=== PATIENT | female | born 1985 | race American Indian/Alaskan Native ===

== ENCOUNTER 2022-05-30 21:36 | Emergency (ER) | payer MEDICAID ==
[2022-05-31 00:03] LABS: Basophils # (Auto) 0.1 K/mm3 (0.0-0.1); Basophils % (Auto) 0.5 % (0.0-1.8); Eosinophils # (Auto) 0.2 K/mm3 (0.0-0.4); Eosinophils % (Auto) 1.3 % (0.0-4.3); Hemoglobin 11.8 gm/dl (10.1-14.3); Lymphocytes # (Auto) 3.5 K/mm3 (1.2-5.4); Lymphocytes % (Auto) 31.3 % (13.4-35.0); Mean Corpuscular HGB Conc 33 % (30-34); Mean Corpuscular Volume 85 fl (79-97); Monocytes % (Auto) 8.7 % (0.0-7.3); Platelet Count 297 K/mm3 (140-440); Red Blood Count 4.22 M/mm3 (3.65-5.03); Red Cell Distribution Width 14.9 % (13.2-15.2)
[2022-05-31 00:15] LABS: Blood Urea Nitrogen 16 mg/dL (7-17); Calcium 9.2 mg/dL (8.4-10.2); Hemolysis Index 3
[2022-05-31 00:16] LABS: BUN/Creatinine Ratio 23
[2022-05-31] MEDS ORDERED: ACETAMINOPHEN 325 MG TAB PO ONE (03:44)
[2022-05-31] MEDS ORDERED: IBUPROFEN 600 MG TAB PO ONE (03:44)
[2022-05-31] MEDS ORDERED: CLINDAMYCIN 300 MG CAP PO ONE (03:44)
--- NOTE | 2022-05-31 03:45 | Emergency Department Report ---
ED General Adult HPI - General Chief complaint: Pain General Stated complaint: Right breast pain Time Seen by Provider: 05/31/22 03:36 Source: patient Mode of arrival: Ambulatory Limitations: No Limitations - History of Present Illness Initial comments: The patient was evaluated in the emergency department for symptoms described in the history of present illness. He/she was evaluated in the context of the global COVID-19 pandemic, which necessitated consideration that the patient might be at risk for infection with the virus that causes COVID-19. Institutional protocols and algorithms that pertain to the evaluation of patients at risk for COVID-19 are in a state of rapid change based on information released by regulatory bodies including the CDC and federal and state organizations. These policies and algorithms were followed during the patient's care in the emergency department. Please note that these policies, procedures and recommendations changed on a rapid basis. During the history and physical examination, I am chaperoned by nurse Rosalba Darby The patient is a 36-year-old female who is right-hand dominant who states that she is not . She has a past medical history of breast abscess, and possible cellulitis, which she reports was drained and treated by breast surgeon at [facility]. She reports having had a mammogram which is unremarkable. She presents to the department today with complaint of right-s ided chest wall pain/breast pain, and right-sided breast redness. She denies the possibility of . She otherwise denies additional complaints. She denies travel, surgery, immobilization, DVT and pulmonary embolism risk factors. Reports no personal or family history of DVT, PE, ACS, [place]. 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 She denies oral contraceptive use. She denies shortness of breath, vomiting, and diaphoresis. She denies abdominal pain to myself. Her symptoms have been present since Monday. It is now Monday morning -: days(s) Location: right (Right breast) Consistency: constant Improves with: rest Worsens with: movement Associated Symptoms: denies other symptoms - Related Data Previous Rx's Medication Instructions Recorded Last Taken Type Acetaminophen [Non-Aspirin Extra 500 mg PO Q6HR PRN #30 tablet 05/31/22 Unknown Rx Strength] Clindamycin [Clindamycin CAP] 300 mg PO Q6H #28 cap 05/31/22 Unknown Rx Ibuprofen [Motrin] 600 mg PO Q8H PRN #30 tablet 05/31/22 Unknown Rx Allergies Allergy/AdvReac Type Severity Reaction Status Date / Time No Known Allergies Allergy Unverified 05/30/22 22:40 ED Review of Systems ROS: Stated complaint: CHEST PAIN,BREST LUMP Other details as noted in HPI Constitutional: denies: fever Respiratory: denies: cough, shortness of breath Cardiovascular: chest pain (Right-sided chest wall pain and breast) Gastrointestinal: denies: abdominal pain Skin: lesions Neurological: denies: weakness ED Past Medical Hx - Medications Home Medications: Home Medications Medication Instructions Recorded Confirmed Last Taken Type Acetaminophen [Non-Aspirin Extra 500 mg PO Q6HR PRN #30 tablet 05/31/22 Unknown Rx Strength] Clindamycin [Clindamycin CAP] 300 mg PO Q6H #28 cap 05/31/22 Unknown Rx Ibuprofen [Motrin] 600 mg PO Q8H PRN #30 tablet 05/31/22 Unknown Rx ED Physical Exam - General Limitations: No Limitations General appearance: alert, in no apparent distress - Head Head exam: Present: atraumatic, normocephalic - Eye Eye exam: Present: normal appearance, EOMI. Absent: nystagmus - ENT ENT exam: Present: normal exam, normal orophraynx, mucous membranes moist, normal external ear exam - Neck Neck exam: Present: normal inspection, full ROM. Absent: tenderness, meningismus - Respiratory Respiratory exam: Present: normal lung sounds bilaterally, chest wall tenderness. Absent: respiratory distress, wheezes, rales, rhonchi, stridor - Cardiovascular Cardiovascular Exam: Present: regular rate, normal rhythm, normal heart sounds. Absent: bradycardia, tachycardia, irregular rhythm, systolic murmur, diastolic murmur, rubs, gallop - GI/Abdominal GI/Abdominal exam: Present: soft. Absent: distended, tenderness, guarding, rebound, rigid, pulsatile mass - Extremities Exam Extremities exam: Present: normal inspection, full ROM, other (2+ pulses noted in the bilateral upper and lower extremities. There is no palpable cord. negative Homans sign. Muscular compartments are soft. The pelvis is stable.). Absent: pedal edema, calf tenderness - Back Exam Back exam: Present: normal inspection. Absent: tenderness, CVA tenderness (R), CVA tenderness (L), paraspinal tenderness, vertebral tenderness - Neurological Exam Neurological exam: Present: alert, oriented X3, normal gait, other (There is no facial droop. The tongue is midline. EOMI. 5 out of 5 strength in 4 extremities). Absent: motor sensory deficit - Psychiatric Psychiatric exam: Present: normal affect, normal mood - Skin Skin exam: Present: warm, erythema - Other Other exam information: There is right inferior lateral breast erythema and induration. The compartments are soft no obvious fluctuance is appreciated. There is reprod ucible chest wall tenderness. Patient provides verbal consent for superficial chest wall breast examination. Chaperoned by nurse Shruti Darby. ED Course Vital Signs 05/30/22 22:37 Temperature 98.9 F Pulse Rate 75 Respiratory 18 Rate Blood Pressure 134/71 [Right] O2 Sat by Pulse 99 Oximetry ED Medical Decision Making - Lab Data Result diagrams: 05/30/22 23:17 05/30/22 23:17 Vital Signs 05/30/22 22:37 Temperature 98.9 F Pulse Rate 75 Respiratory 18 Rate Blood Pressure 134/71 [Right] O2 Sat by Pulse 99 Oximetry Lab Results 05/30/22 05/30/22 Range/Units 23:17 23:17 WBC 11.3 H (4.5-11.0) K/mm3 RBC 4.22 (3.65-5.03) M/mm3 Hgb 11.8 (10.1-14.3) gm/dl Hct 36.0 (30.3-42.9) % MCV 85 (79-97) fl MCH 28 (28-32) pg MCHC 33 (30-34) % RDW 14.9 (13.2-15.2) % Plt Count 297 (140-440) K/mm3 Lymph % (Auto) 31.3 (13.4-35.0) % [place] % (Auto) 8.7 H (0.0-7.3) % Eos % (Auto) 1.3 (0.0-4.3) % Baso % (Auto) 0.5 (0.0-1.8) % Lymph # (Auto) 3.5 (1.2-5.4) K/mm3 [place] # (Auto) 1.0 H (0.0-0.8) K/mm3 Eos # (Auto) 0.2 (0.0-0.4) K/mm3 Baso # (Auto) 0.1 (0.0-0.1) K/mm3 Seg Neutrophils % 58.2 (40.0-70.0) % Seg Neutrophils # 6.6 (1.8-7.7) K/mm3 Sodium 139 (137-145) mmol/L Potassium 4.1 (3.6-5.0) mmol/L Chloride 101.8 (98-107) mmol/L Carbon Dioxide 28 (22-30) mmol/L Anion Gap 13 mmol/L BUN 16 (7-17) mg/dL Creatinine 0.7 (0.6-1.2) mg/dL Estimated GFR > 60 ml/min BUN/Creatinine Ratio 23 % Glucose 82 (65-100) mg/dL Calcium 9.2 (8.4-10.2) mg/dL - EKG Data -: EKG Interpreted by Me EKG shows normal: sinus rhythm Rate: normal - EKG Data 05/31/22 03:55 The EKG is interpreted at 22: 44 Sinus rhythm, rate 97 bpm. Normal axis, normal intervals, normal P wave axis, incomplete right bundle branch block, abnormal EKG, not a STEMI. - Medical Decision Making Differential diagnosis, including but not limited to: Breast cellulitis, induration, small abscess, costochondritis Assessment and plan: 36-year-old female with reproducible chest wall pain, and small right-sided breast cellulitis. There is induration, and I do not appreciate an abscess. At this point in time, would not recommend incision and drainage. Recommend warm compresses, antibiotics, pain medication, outpatient follow-up with primary care, surgery, or breast surgery. Patient does not appear to have an emergent medical condition present at this time. Discussed this with patient and mother at the bedside, with patient's consent to have the details of her care discussed. Patient resting comfortably in stretcher, on cell phone, and in no acute distress, protecting airway. She is not currently tachycardic, tachypneic or hypoxic, she denies DVT and pulmonary embolism risk factors, she is low risk by Wells criteria for pulmonary embolism, and she is PERC negative. Critical care attestation.: If time is entered above; I have spent that time in minutes in the direct care of this critically ill patient, excluding procedure time. ED Disposition Clinical Impression: Induration, breast Disposition: HOME / SELF CARE / HOMELESS Is pt being admited?: No Does the pt Need Aspirin: No Condition: Good Instructions: Abdominal Pain (ED), Cellulitis, Adult Additional Instructions: Patient is found to have right-sided breast induration, without definitive abscess abscess of breast abscess. Would not definitively recommend incision and drainage at this time. The patient may require incision and drainage at some point in the near future. Apply warm compresses, and wear loosefitting clothing. Take the pain medication as needed and directed. Take the antibiotic s as directed. Follow-up with the breast surgeon, general surgeon, or primary care doctor within the next 5 to 7 days, for repeat checkup and evaluation. Please return to the emergency room right away with new pain, worsened pain, migration of pain, projectile vomiting, change in mental status, confusion, inability tolerate liquid feeds, new, worsened or different symptoms not present on the initial emergency room evaluation Referrals: SAIGE JERONIMO MD [Staff Physician] - 3-5 Days Forms: Work/School Release Form(ED)
[2022-05-31 06:19] VITALS: BP 142/76
--- NOTE | 2022-06-02 17:12 | Electrocardiograph Report ---
[facility] Test Date: 2022-05-30 Test Time: 22:44:44 Pat Name: JAN PARSON Department: Room: Gender: F Representative Phlebotomy Services: PRASHANT : 1985 Requested By: VANI HENDRICKSON Order Number: [id number] Reading MD: Brendan Ansari Measurements Intervals [place] Rate: 97 P: 59 AK: 124 QRS: 58 QRSD: 87 T: 16 QT: 343 QTc: 437 Interpretive Statements Sinus rhythm Probable left atrial enlargement Incomplete right bundle branch block No previous ECG available for comparison Electronically Signed On 06-02-2022 17:12:20 EDT by Brendan Ansari
== END 2022-05-31 06:20 | disposition home or self-care (01) ==
LOC: ED 21:36
DX: N64.51 Induration of breast (principal)
CPT/HCPCS: 36415; 80048; 85025; 93005; 99283